=== PATIENT | female | born 1935 | race Caucasian/White ===

== ENCOUNTER 2020-07-17 19:17 | Inpatient (IN) | payer MEDICARE ==
--- NOTE | 2020-07-17 20:24 | CT ---
EXAMINATION TYPE: CT brain wo con DATE OF EXAM: 07/17/2020 COMPARISON: HISTORY: Slurred speech. CT DLP: 1088.4 mGycm Automated exposure control for dose reduction was used. Helical imaging through the brain. FINDINGS: There is no hemorrhage or hydrocephalus. Cortical atrophy is present. Periventricular white matter sh ows patchy low attenuation. Calvarium is intact. Paranasal sinuses and mastoid air cells as visualize d are normal. IMPRESSION: AGE-RELATED CHANGES OF ATROPHY AND PROBABLE CHRONIC SMALL VESSEL ISCHEMIA.
[2020-07-17 20:41] LABS: Basophils # (A) 0.1 k/uL (0-0.2); Basophils % (A) 1 %; Eosinophils # (A) 0.3 k/uL (0-0.7); Eosinophils % (A) 4 %; HCT 36.3 % (34.0-46.0); HGB 12.2 gm/dL (11.4-16.0); Lymphocytes # (A) 1.9 k/uL (1.0-4.8); Lymphocytes % (A) 23 %; MCH 29.7 pg (25.0-35.0); MCHC 33.7 g/dL (31.0-37.0); Mean Platelet Volume 8.1; Monocytes # (A) 0.4 k/uL (0-1.0); Monocytes % (A) 5 %; Neutrophils # (A) 5.7 k/uL (1.3-7.7); Neutrophils % (A) 67 %; Platelet Count 285 k/uL (150-450); RBC 4.13 m/uL (3.80-5.40); RDW 13.7 % (11.5-15.5); WBC 8.5 k/uL (3.8-10.6)
[2020-07-17 21:03] LABS: Partial Thromboplastin Time 22.3 sec (22.0-30.0); Prothrombin Time 10.6 sec (9.0-12.0)
[2020-07-17 21:23] LABS: Albumin 4.4 g/dL (3.5-5.0); Potassium 4.6 mmol/L (3.5-5.1); Total Bilirubin 0.2 mg/dL (0.2-1.3); Total Protein 7.3 g/dL (6.3-8.2)
[2020-07-17] MEDS ORDERED: NALOXONE 0.4 MG/ML 1 ML VIAL IV PRN (22:10)
--- NOTE | 2020-07-17 22:10 | ED ---
General Adult HPI - General Chief complaint: Neuro Symptoms/Deficit Stated complaint: Slurred Speech/Confusion Time Seen by Provider: 07/17/20 19:36 Source: patient Mode of arrival: wheelchair - History of Present Illness Initial comments: 85-year-old female patient presents to the emergency department today for evaluation after having an episode where she is having difficulty speaking. States that around 12:00 this afternoon she started having trouble getting her words out. Her first language is [place] and she had to switch to [place] in order to express herself. Daughter states there were times when she couldn't speak at all during the episode. Denies any difficulty swallowing. Denies numbness, tingling, or weakness to her extremities. Denies any headache, blurred vision, double vision, or change in vision. Daughter states that she has had trouble finding her words and some forgetfulness increased over the last couple of years, but nothing that was this severe or lasted this long. Daughter states symptoms did improve after eating, though she did not check blood sugar before hand. Patient denies any recent rash, fever, chills, cough, shortness of breath, chest pain, abdominal pain, nausea, vomiting, diarrhea, constipation, back pain, hematuria, dysuria, urinary urgency, urinary frequency, or any other complaints. - Related Data Home Medications Medication Instructions Recorded Confirmed Felodipine [Felodipine ER] 10 mg PO DAILY 07/17/20 07/17/20 Levocetirizine Dihydrochloride 5 mg PO DAILY 07/17/20 07/17/20 [Xyzal] Losartan Potassium [Cozaar] 100 mg PO DAILY 07/17/20 07/17/20 metFORMIN HCL 1,000 mg PO BID 07/17/20 07/17/20 Allergies Allergy/AdvReac Type Severity Reaction Status Date / Time codeine Allergy Hallucinati Verified 07/17/20 21:45 ons Review of Systems ROS Statement: Those systems with pertinent positive or pertinent negative responses have been documented in the HPI. ROS Other: All systems not noted in ROS Statement are negative. Past Medical History Past Medical History: Diabetes Mellitus, Hyperlipidemia, Hypertension History of Any Multi-Drug Resistant Organisms: None Reported Past Surgical History: Hysterectomy, Joint Replacement Additional Past Surgical History / Comment(s): back surgery Smoking Status: Never smoker Past Alcohol Use History: None Reported Past Drug Use History: None Reported General Exam General appearance: alert, in no apparent distress, other (This is a well- developed, well-nourished elderly female patient in no acute distress. Vital signs upon presentation temperature 98.0F, pulse 98, respirations 18, blood pressure 191/80, pulse ox 98% on room air.) Eye exam: Present: normal appearance, PERRL, EOMI. Absent: scleral icterus, conjunctival injection, periorbital swelling ENT exam: Present: normal exam, normal oropharynx, mucous membranes moist Respiratory exam: Present: normal lung sounds bilaterally. Absent: respiratory distress, wheezes, rales, rhonchi, stridor Cardiovascular Exam: Present: regular rate, normal rhythm, normal heart sounds. Absent: systolic murmur, diastolic murmur, rubs, gallop, clicks GI/Abdominal exam: Present: soft, normal bowel sounds. Absent: distended, tenderness, guarding, rebound, rigid Neurological exam: Present: alert, oriented X3, CN II-XII intact Expanded Speech: Present: fluid speech Cranial nerves: EOM's Intact: Normal, Tongue Deviation: Normal, Nystagmus: Normal, Facial Sensation: Normal Cerebellar function: Finger to Nose: Normal, Heel to Ferrer: Normal Motor strength exam: RUE: 5, LUE: 5, RLE: 5, LLE: 5 Psychiatric exam: Present: normal affect, normal mood Skin exam: Present: warm, dry, intact, normal color. Absent: rash Course Vital Signs 07/17/20 19:23 Temperature 98.0 F Pulse Rate 98 Respiratory 18 Rate Blood Pressure 191/80 O2 Sat by Pulse 98 Oximetry EKG Findings - EKG Comments: EKG Findings:: EKG obtained at 1936 shows normal sinus rhythm with a ventricular rate of 99, NJ interval 170, QRS duration 122, QT 364, QTC 467. Medical Decision Making - Medical Decision Making 85-year-old female patient presented to the emergency department today for evaluation after having episode of difficulty speaking, daughter and patient states symptoms lasted for a little over 2 hours. Physical examination on arrival is unremarkable. She is neurologically intact. An a to be 0. She did have negative computed tomography scan here. Labs are unremarkable. She will be admitted to the hospital for further evaluation by neurology for probable TIA. Patient and daughter are agreeable. As of my attending Dr. Rose. - Lab Data Result diagrams: 07/17/20 20:11 07/17/20 20:11 Lab Results 07/17/20 07/17/20 07/17/20 Range/Units 20:11 20:11 20:11 WBC 8.5 (3.8-10.6) k/uL RBC 4.13 (3.80-5.40) m/uL Hgb 12.2 (11.4-16.0) gm/dL Hct 36.3 (34.0-46.0) % MCV 88.0 (80.0-100.0) fL MCH 29.7 (25.0-35.0) pg MCHC 33.7 (31.0-37.0) g/dL RDW 13.7 (11.5-15.5) % Plt Count 285 (150-450) k/uL MPV 8.1 Neutrophils % 67 % Lymphocytes % 23 % Monocytes % 5 % Eosinophils % 4 % Basophils % 1 % Neutrophils # 5.7 (1.3-7.7) k/uL Lymphocytes # 1.9 (1.0-4.8) k/uL Monocytes # 0.4 (0-1.0) k/uL Eosinophils # 0.3 (0-0.7) k/uL Basophils # 0.1 (0-0.2) k/uL PT 10.6 (9.0-12.0) sec INR 1.0 (<1.2) APTT 22.3 (22.0-30.0) sec Sodium 139 (137-145) mmol/L Potassium 4.6 (3.5-5.1) mmol/L Chloride 104 (98-107) mmol/L Carbon Dioxide 24 (22-30) mmol/L Anion Gap 11 mmol/L BUN 21 H (7-17) mg/dL Creatinine 0.88 (0.52-1.04) mg/dL Est GFR (CKD-EPI)AfAm 71 (>60 ml/min/1.73 sqM) Est GFR (CKD-EPI)NonAf 61 (>60 ml/min/1.73 sqM) Glucose 227 H (74-99) mg/dL Calcium 10.0 (8.4-10.2) mg/dL Total Bilirubin 0.2 (0.2-1.3) mg/dL AST 24 (14-36) U/L ALT 17 (4-34) U/L Alkaline Phosphatase 137 H (38-126) U/L Troponin I (0.000-0.034) ng/mL Total Protein 7.3 (6.3-8.2) g/dL Albumin 4.4 (3.5-5.0) g/dL 07/17/20 Range/Units 20:11 WBC (3.8-10.6) k/uL RBC (3.80-5.40) m/uL Hgb (11.4-16.0) gm/dL Hct (34.0-46.0) % MCV (80.0-100.0) fL MCH (25.0-35.0) pg MCHC (31.0-37.0) g/dL RDW (11.5-15.5) % Plt Count (150-450) k/uL MPV Neutrophils % % Lymphocytes % % Monocytes % % Eosinophils % % Basophils % % Neutrophils # (1.3-7.7) k/uL Lymphocytes # (1.0-4.8) k/uL Monocytes # (0-1.0) k/uL Eosinophils # (0-0.7) k/uL Basophils # (0-0.2) k/uL PT (9.0-12.0) sec INR (<1.2) APTT (22.0-30.0) sec Sodium (137-145) mmol/L Potassium (3.5-5.1) mmol/L Chloride (98-107) mmol/L Carbon Dioxide (22-30) mmol/L Anion Gap mmol/L BUN (7-17) mg/dL Creatinine (0.52-1.04) mg/dL Est GFR (CKD-EPI)AfAm (>60 ml/min/1.73 sqM) Est GFR (CKD-EPI)NonAf (>60 ml/min/1.73 sqM) Glucose (74-99) mg/dL Calcium (8.4-10.2) mg/dL Total Bilirubin (0.2-1.3) mg/dL AST (14-36) U/L ALT (4-34) U/L Alkaline Phosphatase (38-126) U/L Troponin I <0.012 (0.000-0.034) ng/mL Total Protein (6.3-8.2) g/dL Albumin (3.5-5.0) g/dL - Radiology Data Radiology results: report reviewed, image reviewed CT brain without contrast was obtained. Report was reviewed in its entirety. Impression by Dr. Patel shows age-related changes of atrophy and probable chronic small vessel ischemia. Disposition Clinical Impression: TIA (transient ischemic attack) Disposition: ADMITTED IP TO THIS [facility] Condition: Serious Referrals: Delgado Person DO [Primary Care Provider] - 1-2 days Decision to Admit Reason: Admit from EC Decision Date: 07/17/20 Decision Time: 22:10
[2020-07-17] MEDS ORDERED: ASPIRIN 81 MG PO STA (22:11)
[2020-07-17] MEDS ORDERED: DILTIAZEM DRIP BOLUS FROM BAG 1 MG SOLN IV ONE (22:30)
[2020-07-17] MEDS ORDERED: DILTIAZEM 125 MG in SODIUM CHLORIDE 0.9% 100 ML IV SCH (22:45)
[2020-07-17 23:11] LABS: Appearance,Urine Clear (Clear); Bacteria,Urine Occasional /hpf; Bilirubin,Urine Negative (Negative); Blood,Urine Negative (Negative); Color,Urine Colorless; Glucose,Urine (UA) 4+ (Negative); Ketones,Urine Negative (Negative); Leukocyte Esterase,Urine Large (Negative); Mucus,Urine Rare /hpf; Nitrite,Urine Negative (Negative); PH, Urine 5.5 (5.0-8.0); Protein,Urine Negative (Negative); RBC,Urine 1 /hpf (0-5); Specific Gravity,Urine 1.007 (1.001-1.035); Squamous Epithelial Cell,Urine <1 /hpf (0-4); Urobilinogen,Urine <2.0 mg/dL (<2.0); WBC,Urine 10 /hpf (0-5)
[2020-07-18 02:49] LABS: Glucose,Whole Blood 140 mg/dL (75-99)
[2020-07-18 06:13] LABS: Glucose,Whole Blood 122 mg/dL (75-99)
[2020-07-18] MEDS ORDERED: ASPIRIN 325 MG TAB PO SCH (09:00)
[2020-07-18] MEDS ORDERED: metFORMIN 500 MG TAB PO SCH ×2 (09:00→17:45)
[2020-07-18] MEDS ORDERED: LORATADINE 10 MG TAB PO SCH (09:00)
[2020-07-18] MEDS ORDERED: LOSARTAN 50 MG TAB PO SCH (09:00)
[2020-07-18] MEDS: DILTIAZEM CD 120 MG CAP.ER.24H PO SCH (09:56)
[2020-07-18] MEDS: amLODIPine 10 MG TAB PO SCH (09:56)
--- NOTE | 2020-07-18 11:33 | P.CRDCN ---
History of Present Illness Consult date: 07/18/20 History of present illness: HISTORY OF PRESENT ILLNESS: This is a 85-year-old female with a past medical history significant for hypertension, hyperlipidemia, and diabetes mellitus. Patient follows with Dr. Arevalo. We have been asked to see the patient in consultation for atrial flutter. Patient examined at the bedside. Patients daughter present and providing majority of HPI. Patient's daughter states that yesterday patient began having difficulty with her speech and was unable to get the words out that was she trying to say. She also states her mom does paint by numbers and the patient appeared confused and did not know what to do with the paint by number yesterday. The patient denied having any chest pain or pressure. She denied any shortness of breath. She denied any weakness in any of her extremities. She denied dizziness or lightheadedness. She denied having any palpitations. She does state that she felt her heart pounding yesterday for just a couple of seconds and then it went away. The daughter states the patient is back to her baseline this morning. Initial EKG in the emergency room revealed sinus mechanism. She then became tachycardic. Repeat EKG reveals possible atypical flutter with RVR versus SVT. Patient was given IV cardizem and her heart rate has since been controlled. She is maintaining sinus mechanism this morning. CT brain: Age related changes of atrophy and probable chronic small vessel ische kyler Laboratory data: WBC 8.5. Hemoglobin 12.2. Platelet count 285. Sodium 139. Potassium 4.6. BUN 21. Creatinine 0.88. Troponin negative 1. Current home cardiac medications include Felodipine 10mg daily and Cozaar 100 mg daily REVIEW OF SYSTEMS: At the time of my exam: CONSTITUTIONAL: Denies fever or chills. HEENT: Denies blurred vision, vision changes, or eye pain. Denies hemoptysis CARDIOVASCULAR: Denies chest pain. Denies orthopnea. Denies PND. Denies palpitations RESPIRATORY: Denies shortness of breath. GASTROINTESTINAL: Denies abdominal pain. Denies nausea or vomiting. HEMATOLOGIC: Denies bleeding disorders. GENITOURINARY: Denies any blood in urine. SKIN: Denies pruitis. Denies rash. PHYSICAL EXAM: VITAL SIGNS: Reviewed. GENERAL: Well-developed in no acute distress. HEENT: Head is normocephalic. Pupils are equal, round. Sclerae anicteric. Mucous membranes of the mouth are moist. Neck supple. No JVD or thyromegaly. Left carotid bruit auscultated. LUNGS: Respirations even and unlabored. Lungs essentially clear to auscultation bilaterally. HEART: Regular rate and rhythm. S1 and S2 heard. Soft systolic murmur noted. ABDOMEN: Soft. Nondistended. Nontender. EXTREMITIES: Normal range of motion. No clubbing or cyanosis. Peripheral pulses intact. No lower extremity edema NEUROLOGIC: Awake and alert. Oriented x 3. ASSESSMENT: Expressive aphasia, suspected TIA Possible atypical flutter with RVR versus SVT Hypertension Hyperlipidemia Diabetes mellitus PLAN: Patients symptoms suggestive of TIA. EKG is difficult to say with certainty that it is atrial flutter but would correlate with patients symptoms. Recommend anticoagulation with Eliquis due to chads vasc score of 5. Spoke with Dr. Doss regarding our recommendations and will notify cardiology team if he is okay with anticoagulation. Continue full dose aspirin at this time until evaluated by neurology. Continue telemetry monitoring Resume home cardiac medications Check TSH Obtain 2-D echo to assess cardiac structure and function Begin atorvastatin 40 mg daily. Obtain lipid panel Obtain carotid Doppler Further recommendations pending patient course Nurse practitioner note has been reviewed by physician. Signing provider agrees with the documented findings, assessment, and plan of care. Past Medical History Past Medical History: Diabetes Mellitus, Hyperlipidemia, Hypertension History of Any Multi-Drug Resistant Organisms: None Reported Past Surgical History: Hysterectomy, Joint Replacement Additional Past Surgical History / Comment(s): back surgery Smoking Status: Never smoker Past Alcohol Use History: None Reported Past Drug Use History: None Reported Medications and Allergies Home Medications Medication Instructions Recorded Confirmed Type Felodipine [Felodipine ER] 10 mg PO DAILY 07/17/20 07/17/20 History Levocetirizine Dihydrochloride 5 mg PO DAILY 07/17/20 07/17/20 History [Xyzal] Losartan Potassium [Cozaar] 100 mg PO DAILY 07/17/20 07/17/20 History metFORMIN HCL 1,000 mg PO BID 07/17/20 07/17/20 History Allergies Allergy/AdvReac Type Severity Reaction Status Date / Time codeine Allergy Hallucinati Verified 07/17/20 21:45 ons Physical Exam Vitals: Vital Signs Temp Pulse Pulse Resp BP BP Pulse Ox 07/18/20 08:58 98.4 F 74 18 187/77 96 07/18/20 03:34 70 18 165/84 97 07/18/20 02:10 98.3 F 79 18 144/92 97 07/18/20 02:00 75 80 18 144/81 96 07/18/20 01:59 98.2 F 80 18 181/76 98 07/18/20 00:52 156 H 20 134/82 96 07/17/20 23:30 152 H 16 150/94 97 07/17/20 22:15 155 H 07/17/20 22:00 148 H 18 140/80 98 07/17/20 19:23 98.0 F 98 18 191/80 98 Intake and Output 07/17/20 07/18/20 07/18/20 22:59 06:59 14:59 Intake Total 5.25 240 Output Total 2 Balance 3.25 240 Intake: Intake, IV Titration 5.25 Amount Diltiazem 125 mg In 5.25 Sodium Chloride 0.9% 100 ml @ 5 MG/HR 5 mls/hr IV .Q24H [facility] Rx#:[id number] Oral 240 Output: Urine 2 Other: Voiding Method Toilet Weight 72.575 kg 69.9 kg Results 07/17/20 20:11 07/17/20 20:11 Cardiac Enzymes 07/17/20 07/17/20 Range/Units 20:11 20:11 AST 24 (14-36) U/L Troponin I <0.012 (0.000-0.034) ng/mL Coagulation 07/17/20 Range/Units 20:11 PT 10.6 (9.0-12.0) sec APTT 22.3 (22.0-30.0) sec CBC 07/17/20 Range/Units 20:11 WBC 8.5 (3.8-10.6) k/uL RBC 4.13 (3.80-5.40) m/uL Hgb 12.2 (11.4-16.0) gm/dL Hct 36.3 (34.0-46.0) % Plt Count 285 (150-450) k/uL Comprehensive Metabolic Panel 07/17/20 Range/Units 20:11 Sodium 139 (137-145) mmol/L Potassium 4.6 (3.5-5.1) mmol/L Chloride 104 (98-107) mmol/L Carbon Dioxide 24 (22-30) mmol/L BUN 21 H (7-17) mg/dL Creatinine 0.88 (0.52-1.04) mg/dL Glucose 227 H (74-99) mg/dL Calcium 10.0 (8.4-10.2) mg/dL AST 24 (14-36) U/L ALT 17 (4-34) U/L Alkaline Phosphatase 137 H (38-126) U/L Total Protein 7.3 (6.3-8.2) g/dL Albumin 4.4 (3.5-5.0) g/dL Current Medications Generic Name Dose Route Start Last Admin Trade Name Freq PRN Reason Stop Dose Admin Amlodipine Besylate 10 mg 07/18/20 09:00 07/18/20 09:56 Amlodipine 10 Mg Tab PO 10 mg DAILY BRYANT Administration Aspirin 325 mg 07/18/20 09:00 07/18/20 09:56 Aspirin 325 Mg Tab PO 325 mg DAILY BRYANT Administration Atorvastatin Calcium 40 mg 07/18/20 21:00 Atorvastatin 40 Mg Tab PO [facility] Diltiazem HCl 120 mg 07/18/20 09:00 07/18/20 09:56 Diltiazem Cd 120 Mg Cap.Er.24h PO 120 mg DAILY BRYANT Administration Loratadine 10 mg 07/18/20 09:00 07/18/20 09:56 Loratadine 10 Mg Tab PO Not Given DAILY [facility] Losartan Potassium 100 mg 07/18/20 09:00 07/18/20 09:56 Losartan 50 Mg Tab PO 100 mg DAILY BRYANT Administration Metformin HCl 1,000 mg 07/18/20 09:00 07/18/20 09:27 Metformin 500 Mg Tab PO Not Given BID BRYANT Naloxone HCl 0.2 mg 07/17/20 22:10 Naloxone 0.4 Mg/Ml 1 Ml Vial IV Q2M PRN Opioid Reversal Intake and Output 07/17/20 07/18/20 07/18/20 22:59 06:59 14:59 Intake Total 5.25 240 Output Total 2 Balance 3.25 240 Intake: Intake, IV Titration 5.25 Amount Diltiazem 125 mg In 5.25 Sodium Chloride 0.9% 100 ml @ 5 MG/HR 5 mls/hr IV .Q24H [facility] Rx#:[id number] Oral 240 Output: Urine 2 Other: Voiding Method Toilet Weight 72.575 kg 69.9 kg 07/17/20 20:11 07/17/20 20:11
[2020-07-18 12:05] LABS: Glucose,Whole Blood 156 mg/dL (75-99)
--- NOTE | 2020-07-18 12:15 | ECHOF ---
Referral Reason:Lv function MEASUREMENTS -------- HEIGHT: 15.2 cm WEIGHT: 69.9 kg BP: 165/84 IVSd: 1.4 cm (0.6 - 1.1) LVIDd: 3.8 cm (3.9 - 5.3) LVPWd: 1.6 cm (0.6 - 1.1) EDV(Teich): 62 ml IVSs: 1.7 cm LVIDs: 2.7 cm LVPWs: 1.8 cm %IVS Thck: 21 % ESV(Teich): 26 ml EF(Teich): 58 % %FS: 30 % SV(Teich): 36 ml LA Diam: 4.2 cm (2.7 - 3.8) RVIDd: 2.3 cm (< 3.3) LALs A4C: 5.2 cm LAAs A4C: 19.2 cm LAESV A-L A4C: 60 ml LAESV MOD A4C: 57 ml LALs A2C: 4.9 cm LAAs A2C: 15.3 cm LAESV A-L A2C: 40 ml LAESV MOD A2C: 38 ml LAESV(A-L): 51 ml LAESV Index (A-L): 164.05 ml/m Ao Diam: 3.1 cm (2.0 - 3.7) AV Cusp: 2.2 cm (1.5 - 2.6) EPSS: 0.4 cm MV E Luis Enrique: 0.63 m/s MV DecT: 185 ms MV Dec [place]: 3.4 m/s MV A Luis Enrique: 0.93 m/s MV E/A Ratio: 0.68 MV PHT: 54 ms LVOT Vmax: 0.84 m/s LVOT maxP.84 mmHg AV Vmax: 1.16 m/s AV maxP.39 mmHg TR Vmax: 1.51 m/s TR maxP.14 mmHg RAP: 5.00 mmHg RVSP: 14.14 mmHg MV EF SLOPE: 84.89 mm/s (70 - 150) MV EXCURSION: 17.80 mm (> 18.000) FINDINGS -------- This was a technically difficult study with suboptimal views. The left ventricular size is normal. There is moderate concentric left ventricular hypertrophy. O verall left ventricular systolic function is low-normal with, an EF between 50 - 55 %. The right ventricle is normal in size. LA is severely dilated >40 ml/m2 The right atrial size is normal. 5.0mg of Lumason was utilized for enhancement of images Interatrial and interventricular septum intact. The aortic valve is trileaflet and appears structurally normal. There is mild aortic valve sclerosi s. There is no evidence of aortic regurgitation. There is no evidence of aortic stenosis. Mild mitral annular calcification present. Mild mitral regurgitation is present. Mild tricuspid regurgitation present. There is no evidence of pulmonary hypertension. The right v entricular systolic pressure, as measured by Doppler, is 14.14mmHg. There is no pulmonic regurgitation present. The aortic root size is normal. IVC Not well visulized. There is no pericardial effusion. CONCLUSIONS -------- 1. The left ventricular size is normal. 2. There is moderate concentric left ventricular hypertrophy. 3. Overall left ventricular systolic function is low-normal with, an EF between 50 - 55 %. 4. LA is severely dilated >40 ml/m2 5. There is mild aortic valve sclerosis. 6. Mild mitral annular calcification present. 7. Mild mitral regurgitation is present. 8. Mild tricuspid regurgitation present. COMPLIANCE CONSULTANT: Taty Finley RDCS
[2020-07-18] MEDS: INSULIN ASPART (NovoLOG) 100 UNIT/ML VIAL SQ SCH ×3 (12:24→20:40)
--- NOTE | 2020-07-18 12:50 | US ---
EXAMINATION TYPE: US carotid duplex BILAT DATE OF EXAM: 07/18/2020 COMPARISON: NONE CLINICAL HISTORY: TIA. EXAM MEASUREMENTS: RIGHT: Peak Systolic Velocity (PSV) cm/sec ----- Right CCA: 54.8 ----- Right ICA: 185.6 ----- Right ECA: 149.2 ICA/CCA ratio: 3.4 RIGHT: End Diastole cm/sec ----- Right CCA: 10.9 ----- Right ICA: 40.7 ----- Right ECA: 7.4 LEFT: Peak Systolic Velocity (PSV) cm/sec ----- Left CCA: 61.1 ----- Left ICA: 76.2 ----- Left ECA: 55.9 ICA/CCA ratio: 1.2 LEFT: End Diastole cm/sec ----- Left CCA: 13.5 ----- Left ICA: 18.1 ----- Left ECA: 5.4 VERTEBRALS (direction of flow): Right Vertebral: Antegrade Left Vertebral: Antegrade Rhythm: Normal Grayscale, color Doppler, spectral Doppler imaging performed of the carotid arteries. Waveform analys is shows hemodynamic significant stenosis of the proximal internal carotid artery in the right. There is loss of the systolic window, spectral broadening and elevated peak systolic velocity in the proxi mal internal carotid artery on the right. Moderate/severe amount of plaque visualized bilaterally. 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 1. Normal (no stenosis)=ICA PSV < 125 cm/s: ratio < 2.0: ICA EDV<40 cm/s. 2. Less than 50% stenosis=ICA PSV < 125 cm/s: ratio < 2.0: ICA EDV<40 cm/s. 3. 50 to 69% stenosis=ICA PSV of 125 to 230 cm/s: ration 2.0 ? 4.0: ICA EDV 40-100 cm/s. 4. Greater than 70% stenosis to near occlusion= ICA PSV > 230 cm/s: ratio > 4.0: ICA EDV > 100 cm/s. 5. Near occlusion= ICA PSV velocities may be low or undetectable: variable ratio and ICA EDV. 6. Total occlusion=unable to detect flow.
--- NOTE | 2020-07-18 15:17 | P.CNNES ---
History of Present Illness Consult date: 07/18/20 Requesting physician: Riya Rico Reason for Consult: TIA History of Present Illness: Patient is a 85-year-old female came to the hospital yesterday at 7:17 PM, after she had an episode of difficulty speaking. Patient's daughter was also present, who provided with history. Patient usually wakes up at 8:52 AM and takes her breakfast and then her medication. Yesterday patient did not wake up until 11 AM. Apparently she tried to do puzzles, and paint, which she usually does in the mornings. She did not know what to do. She then took her lunch at noon including a hamburger, with sauteed mushrooms and salad. Then she took her medication including metformin. At around 2 PM patient came in to talk to her daughter pointing to her throat, saying "I don't understand". She had difficulty with articulation, did not know what was happening. Patient usually speaks to her daughter in Kinyarwanda language, but she was talking in a Algerian, which was unusual. She could not find words. Patient's daughter took her to urgent care. She was recommended to go to the ER. On the way to the ER, patient's daughter took her to [employer] drive-through, and about her some food and she ate at all, appears as if she was very hungry. Unfortunately patient's daughter did not check her blood sugar at home, for the reasons mentioned below. There was no facial droop, problem with the vision, focal weakness, numbness or balance issues reported. In the urgent care, patient's blood sugar was 360. EKG was done. Patient was recommended to go to the ER. Vital signs on arrival blood pressure 191/80, pulse rate 98, temperature 98.0. Her blood pressure did stabilize after she arrived, but now has gone up again 187/77. CT scan of head showed age-related changes of atrophy and probable chronic small vessel ischemia. EKG shows SVT, left axis deviation. Repeat EKG showed normal sinus rhythm. Patient's blood test shows normal CBC, PT/PTT, Chem-20 is normal. Troponin negative. UA shows large amount of leukocyte Estrace, 10 WBC and occasional bacteria. Dow virus PCR negative. Patient has diabetes for over 10 years, hypertension and hyperlipidemia. Patient does not like to check her home blood sugar, as she flatly declines, and becomes "mean and angry", as per daughter, therefore never checks her blood sugars at home. She has never smoked, drinks alcohol occasionally. Apparently patient had an episode of "irregular heart rhythm" after some surgical procedure in 2013. As the "irregular heart rhythm" did not stay long, she was not placed on anticoagulants at that time. Patient at home takes metformin 1000 mg twice a day, losartan 100 mg and felodipine. Review of Systems As mentioned above in HPI. All other review of systems unremarkable. Denies any chest pain shortness of breath wheezing or cough. Denies any diplopia, loss of vision, chest pain, abdominal pain, nausea vomiting diarrhea. No fever or chills. No rash. No weight loss. Past Medical History Past Medical History: Diabetes Mellitus, Hyperlipidemia, Hypertension History of Any Multi-Drug Resistant Organisms: None Reported Past Surgical History: Hysterectomy, Joint Replacement Additional Past Surgical History / Comment(s): back surgery Smoking Status: Never smoker Past Alcohol Use History: None Reported Past Drug Use History: None Reported Medications and Allergies Home Medications Medication Instructions Recorded Confirmed Type Felodipine [Felodipine ER] 10 mg PO DAILY 07/17/20 07/17/20 History Levocetirizine Dihydrochloride 5 mg PO DAILY 07/17/20 07/17/20 History [Xyzal] Losartan Potassium [Cozaar] 100 mg PO DAILY 07/17/20 07/17/20 History metFORMIN HCL 1,000 mg PO BID 07/17/20 07/17/20 History Apixaban [Eliquis] 5 mg PO BID #60 tab 07/18/20 Rx Allergies Allergy/AdvReac Type Severity Reaction Status Date / Time codeine Allergy Hallucinati Verified 07/17/20 21:45 ons Physical Examination - Vital Signs Vital Signs: Vital Signs Temp Pulse Pulse Resp BP BP Pulse Ox 07/18/20 08:58 98.4 F 74 18 187/77 96 07/18/20 03:34 70 18 165/84 97 07/18/20 02:10 98.3 F 79 18 144/92 97 07/18/20 02:00 75 80 18 144/81 96 07/18/20 01:59 98.2 F 80 18 181/76 98 07/18/20 00:52 156 H 20 134/82 96 07/17/20 23:30 152 H 16 150/94 97 07/17/20 22:15 155 H 07/17/20 22:00 148 H 18 140/80 98 07/17/20 19:23 98.0 F 98 18 191/80 98 Intake and Output 07/17/20 07/18/20 07/18/20 22:59 06:59 14:59 Intake Total 5.25 240 Output Total 2 Balance 3.25 240 Intake: Intake, IV Titration 5.25 Amount Diltiazem 125 mg In 5.25 Sodium Chloride 0.9% 100 ml @ 5 MG/HR 5 mls/hr IV .Q24H [facility] Rx#:[id number] Oral 240 Output: Urine 2 Other: Voiding Method Toilet Weight 72.575 kg 69.9 kg Patient is an elderly female, in no acute distress. Patient is alert awake oriented to time place and person. Patient knows it is July and the year is 2020. Patient does not know what town is it although she knows that she lives in [facility]. Patient states the state is "[place]". Multiple times it was asked what state and she insisted on state of "[place]". Speech and language functions are normal. Patient can name and repeat very well. She follow, arms and comprehension is normal. Attention, con centration and fund of knowledge is adequate for her age. On cranial examination, pupils are equal, round and reacting to light, visual casas are full on confrontation with no neglect on double simultaneous stimulation, extraocular muscles are intact with no nystagmus. Face is symmetric, tongue protrudes to the midline. Palatal elevation and sensation normal, hearing and shoulder shrug normal, facial sensation normal. Shoulder shrug normal. On muscle strength testing, there is no pronator drift and the strength is normal in arms and legs distally and proximally. Deep tendon reflexes are 1+ to 2, symmetric all over and plantars downgoing Sensory to touch is equal with no neglect. Cerebellar function showed no ataxia for [id number] testing. No dysdiadochokinesia. Tone and bulk of muscles normal. Gait normal. On general examination, there is no carotid bruit or murmur, S1-S2 audible. Abdomen is soft nontender. Chest is clear. Peripheral pulses are present. No edema. Results - Laboratory Findings CBC and BMP: 07/17/20 20:11 07/17/20 20:11 Abnormal Lab Findings: Abnormal Labs 07/17/20 07/17/20 07/18/20 20:11 22:31 02:46 BUN 21 H Glucose 227 H POC Glucose (mg/dL) 140 H Alkaline Phosphatase 137 H Urine Glucose (UA) 4+ H Ur Leukocyte Esterase Large H Urine WBC 10 H Urine Bacteria Occasional H Urine Mucus Rare H 07/18/20 06:12 BUN Glucose POC Glucose (mg/dL) 122 H Alkaline Phosphatase Urine Glucose (UA) Ur Leukocyte Esterase Urine WBC Urine Bacteria Urine Mucus Assessment and Plan Assessment: * Probable TIA manifesting with expressive aphasia. Her symptoms have now completely resolved. Exam nonfocal at this time. Differential also includes hypoglycemia, as blood sugar was not checked. However patient has eaten lunch (hamburger) prior to this event, therefore probably would not be hypoglycemic. Her blood sugar at the urgent care was 360. * Possible atypical flutter with RVR versus SVT. * History of "irregular heart rhythm" post surgery in 2013, that did not recur subsequently. Patient not on any anticoagulation previously. * Diabetes * Hypertension * Hyperlipidemia Plan: * Patient has a probable TIA manifesting with expressive aphasia, that now has resolved. Her examination is normal. * There is possibility of atrial flutter/fibrillation per cardiology. Patient will be started on anticoagulation with Apixaban 5 mg twice a day. * 2-D echo revealed normal left-ventricular size. Moderate concentric LVH. EF is 50-55%. Left atrium is severely dilated. Mild aortic valve sclerosis. Mild mitral annular calcification. * Carotid Doppler revealed hemodynamic significant stenosis of the proximal ICA on the right corresponding to approximately 50-69% diameter reduction by Doppler. Antegrade flow in both vertebral arteries. We will check CTA of head and neck. * Lipid panel pending. We will check hemoglobin A1c. * Telemetry on the floor showing only sinus rhythm. * Dr. Syed Olmedo to resume neurology service from the morning.
[2020-07-18] MEDS: APIXABAN 5 MG TAB PO SCH ×2 (15:38→20:40)
--- NOTE | 2020-07-18 16:33 | CT ---
EXAMINATION TYPE: CT angio head neck DATE OF EXAM: 07/18/2020 HISTORY: TIA, right ICA stenosis COMPARISON: Carotid ultrasound earlier today CT DLP: 411.6 mGycm. Automated Exposure Control for Dose Reduction was Utilized. TECHNIQUE: CTA scan of the head and neck are performed with IV Contrast, patient injected with 65 mL of Isovue 370, axial images are obtained, coronal and sagittal reformatted images are reviewed. Thre e-D reconstructed images are created on an independent workstation and reviewed. FINDINGS: Carotid/Vascular Structures: Overlying type arch which is normal variant. Mild to moderate mixed plaq ue in the arch extending into descending thoracic aorta. No significant stenosis at aortic arch level . Normal origin right common carotid artery from right brachiocephalic artery with tortuous course. T ortuous course to the bilateral common carotid arteries without significant plaque or stenosis. There is moderate to severe mixed plaque in the right carotid bulb extending into proximal internal caroti d artery causing significant stenosis. Lumen diameter narrows to 1.7 mm series 14 image 13 and recons titutes to 5.9 mm superior to this. No significant stenosis in the external carotid artery. Moderate to severe calcified plaque left carotid bulb extends into proximal internal carotid artery without gr eater than 50% stenosis. Patent external carotid arteries bilaterally without significant stenosis. Larger or dominant right vertebral artery. Vertebral arteries patent to basilar junction. Hypoplastic bilateral posterior communicating arteries. No significant focal stenosis or aneurysm in the posteri or circulation. Moderate calcified plaque distal internal carotid arteries bilaterally. Patent anterior communicatin g artery. No significant focal stenosis or aneurysmal change in the anterior circulation. Other: Incidental 1.4 cm right thyroid nodule axial image 36 and suspect smaller subcentimeter thyro id nodules. Follow-up thyroid ultrasound advised to further evaluate if this is not known finding. Mild to moderate spurring and disc space narrowing C5-C6 and C6-C7 levels in the cervical spine. IMPRESSION: 1. Confirmation of significant stenosis origin of right internal carotid artery. The degree of stenos is near 70% using NASCET criteria. Findings correlate with recent carotid ultrasound. 2. No significant stenosis or aneurysm at the level of the [place].
[2020-07-18 16:56] LABS: Glucose,Whole Blood 151 mg/dL (75-99)
--- NOTE | 2020-07-18 17:44 | P.HPIM ---
History of Present Illness H&P Date: 07/18/20 Chief Complaint: Altered speech History of presenting complaint: This is a very pleasant 85-year-old patient with a Peruvian accent. Patient's daughter the bedside. Chronic stable medical conditions include diabetes, hypertension, hyperlipidemia. Patient lives alone but his daughter lives close by. And drops in all the time. Yesterday afternoon patient was doing apostles and she suddenly noticed that she was feeling confused. Went to her daughter. Also found difficulty finding words. This lasted for a good few hours. No change in vision or headache no dizziness no focal weakness. Finally decided to come down to the ER. Patient's found to be in rapid heart rate in the ER. Patient in 2013 has to was told has had irregular heartbeat but because it was short-lived. She was not given any anticoagulation. Patient is put on a Cardizem drip. Patient did revert to control rhythm only this morning. This morning patient feels back to baseline. Patient otherwise is very active. Review of systems: GEN.: None EYES: None HEENT: None NECK: None RESPIRATORY: None CARDIOVASCULAR: None GASTROINTESTINAL: None GENITOURINARY: None MUSCULOSKELETAL: [Some joint pains LYMPHATICS: None HEMATOLOGICAL: None PSYCHIATRY: None NEUROLOGICAL: As above Past medical history to include: Diabetes mellitus, hypertension, hyperlipidemia, episode of irregular heartbeat smxb-[id number]-uxec-limiting Social history: Lives alone but daughter lives very close by and often is over. Denies any smoking or alcohol. Family history: Reviewed, noncontributory to presentation Physical examination: VITAL SIGNS: 98, 148, 18, 140/80, 98% room air upon presentation GENERAL: BMI 24.9, reclining in bed, comfortable. EYES: Pupils equal. Conjunctiva normal. HEENT: External appearance of nose and ears normal, oral cavity grossly normal. NECK: JVD not raised; masses not palpable. HEART: First and second heart sounds are normal; no edema. LUNGS: Respiratory rate normal; clear to auscultation. ABDOMEN: Soft, nontender, liver spleen not palpable, no masses palpable. PSYCH: Alert and oriented x3; mood and affect normal. 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 LYMPHATICS: No lymph nodes palpable in the axilla and neck INVESTIGATIONS, reviewed in the clinical context: WBC 8.5 hemoglobin 12.2 platelets 285 potassium 4.6 creatinine 0.88 Blood glucose 227 Troponin I less than 0.012 TSH 1.5 UA positive for leukoesterase, bacteria, glucose 4+ Coronavirus [PCR]: Not detected EKG tracing personally reviewed by me-SVT, flutter cannot be ruled out Computed tomography scan of the brain: Age related changes 2-D echocardiogram moderate concentric LVH, EF 50-55% CT angiography: Near 70% stenosis of the right internal carotid artery Assessment and plan: -Acute dysphasia with symptoms lasting for less than 24 hours, with complete resolution. Patient has underlying history of atrial fibrillation and possibly had atrial flutter on presentation. Most likely this is an embolic event. Initial computed tomography scan negative -Paroxysmal atrial flutter, now back in sinus rhythm, initially rate uncontrolled Status post IV Cardizem drip. Now on Cardizem CD. Started on eliquis -Hyperlipidemia Placed on Lipitor -Essential hypertension, with urgency Now on Cardizem CD. Cozaar -Diabetes mellitus type 2, on oral hypoglycemic Resume metformin. Follow Accu-Cheks Care was discussed with patient's daughter and patient the bedside. Patient be started on eliquis. They're concerned about easy bruising. Pros and cons were discussed. They agreed to proceed with eliquis. We will order MRI of the brain. Patient on telemetry. Past Medical History Past Medical History: Diabetes Mellitus, Hyperlipidemia, Hypertension History of Any Multi-Drug Resistant Organisms: None Reported Past Surgical History: Hysterectomy, Joint Replacement Additional Past Surgical History / Comment(s): back surgery Smoking Status: Never smoker Past Alcohol Use History: None Reported Past Drug Use History: None Reported Medications and Allergies Home Medications Medication Instructions Recorded Confirmed Type Felodipine [Felodipine ER] 10 mg PO DAILY 07/17/20 07/17/20 History Levocetirizine Dihydrochloride 5 mg PO DAILY 07/17/20 07/17/20 History [Xyzal] Losartan Potassium [Cozaar] 100 mg PO DAILY 07/17/20 07/17/20 History metFORMIN HCL 1,000 mg PO BID 07/17/20 07/17/20 History Apixaban [Eliquis] 5 mg PO BID #60 tab 07/18/20 Rx Allergies Allergy/AdvReac Type Severity Reaction Status Date / Time codeine Allergy Hallucinati Verified 07/17/20 21:45 ons Physical Exam Vitals: Vital Signs Temp Pulse Pulse Resp BP BP Pulse Ox 07/18/20 08:58 98.4 F 74 18 187/77 96 07/18/20 03:34 70 18 165/84 97 07/18/20 02:10 98.3 F 79 18 144/92 97 07/18/20 02:00 75 80 18 144/81 96 07/18/20 01:59 98.2 F 80 18 181/76 98 07/18/20 00:52 156 H 20 134/82 96 07/17/20 23:30 152 H 16 150/94 97 07/17/20 22:15 155 H 07/17/20 22:00 148 H 18 140/80 98 07/17/20 19:23 98.0 F 98 18 191/80 98 Intake and Output 07/17/20 07/18/20 07/18/20 22:59 06:59 14:59 Intake Total 5.25 240 Output Total 2 Balance 3.25 240 Intake: Intake, IV Titration 5.25 Amount Diltiazem 125 mg In 5.25 Sodium Chloride 0.9% 100 ml @ 5 MG/HR 5 mls/hr IV .Q24H [facility] Rx#:[id number] Oral 240 Output: Urine 2 Other: Voiding Method Toilet Weight 72.575 kg 69.9 kg Results CBC & Chem 7: 07/17/20 20:11 07/17/20 20:11 Labs: Abnormal Lab Results - Last 24 Hours (Table) 07/17/20 07/17/20 07/18/20 Range/Units 20:11 22:31 02:46 BUN 21 H (7-17) mg/dL Glucose 227 H (74-99) mg/dL POC Glucose (mg/dL) 140 H (75-99) mg/dL Alkaline Phosphatase 137 H (38-126) U/L Urine Glucose (UA) 4+ H (Negative) Ur Leukocyte Esterase Large H (Negative) Urine WBC 10 H (0-5) /hpf Urine Bacteria Occasional H (None) /hpf Urine Mucus Rare H (None) /hpf 07/18/20 Range/Units 06:12 BUN (7-17) mg/dL Glucose (74-99) mg/dL POC Glucose (mg/dL) 122 H (75-99) mg/dL Alkaline Phosphatase (38-126) U/L Urine Glucose (UA) (Negative) Ur Leukocyte Esterase (Negative) Urine WBC (0-5) /hpf Urine Bacteria (None) /hpf Urine Mucus (None) /hpf Thrombosis Risk Factor Assmnt - Choose All That Apply Each Risk Factor Represents 3 Points: Age 75 years or older Other congenital or acquired thrombophilia - If yes, enter type in comment: No Thrombosis Risk Factor Assessment Total Risk Factor Score: 3 Thrombosis Risk Factor Assessment Level: Moderate Risk
[2020-07-18 20:03] LABS: Glucose,Whole Blood 193 mg/dL (75-99)
[2020-07-18] MEDS ORDERED: ATORVASTATIN 40 MG TAB PO SCH (21:00)
[2020-07-19 06:09] LABS: Glucose,Whole Blood 151 mg/dL (75-99)
[2020-07-19] MEDS: INSULIN ASPART (NovoLOG) 100 UNIT/ML VIAL SQ SCH ×2 (07:03→12:28)
[2020-07-19] MEDS: DILTIAZEM CD 120 MG CAP.ER.24H PO SCH (08:16)
[2020-07-19] MEDS: amLODIPine 10 MG TAB PO SCH (08:16)
[2020-07-19] MEDS: APIXABAN 5 MG TAB PO SCH (08:16)
[2020-07-19 08:19] VITALS: PULSE 68; RESP 16; TEMP 98.9
--- NOTE | 2020-07-19 11:24 | P.PN ---
Subjective Progress Note Date: 07/19/20 I am seeing the patient for the first time appears please defer to Dr. Lyons's note for further detailed neurological history and his assessment and plan. Per the patient's daughter who is at bedside, she feels her mom's speech is back to baseline and neurologically back to baseline. It seems the MRI Brain is ordered by the primary team but patient is claustrophobic and per daughter she can get open MRI as outpatient. Patient had CT angiography of the head and neck and it's reported as confirmation of significant stenosis origin of the right internal carotid artery. The degree of stenosis in the near 70% using NASA criteria. Finding correlates with a recent carotid ultrasound. No significant stenosis or aneurysm at the level [place]. Dr. Kirk is consulted by primary team for carotid stenosis and per daughter were notified no intervention. Objective - Vital Signs Vital signs: Vital Signs Temp 98.9 F 07/19/20 08:00 Pulse 68 07/19/20 08:00 Resp 16 07/19/20 08:00 BP 138/64 07/19/20 08:00 Pulse Ox 99 07/19/20 08:00 Intake & Output 07/18/20 07/19/20 07/19/20 18:59 06:59 18:59 Intake Total 480 120 Balance 480 120 Weight 69.4 kg Intake: Oral 480 120 Other: Voiding Method Toilet Toilet Toilet Diaper Diaper Diaper Incontinent Incontinent Incontinent # Voids 2 1 - Exam GENERAL: The patient is lying in bed and is not in acute distress.. NEUROLOGICAL: Higher mental function: The patient is awake, alert, oriented to self, place and time. Patient is following commands. No aphasia and no neglect. She is repeating phrases but had to break up the phrases into pieces (per daughter her speech is back to baseline and speaking fluently in Persian and speaking baseline in brit[place] islander). Cranial nerves: The pupils are round, equal and reactive to light and accommodation. Visual casas are full to confrontation throughout. Extraocular movement is intact no nystagmus is noted. Facial sensation is normal to touch throughout. The facial strength is normal throughout. Tongue is midline and moved [id number] without any difficulty. No dysarthria is noted. Shoulder shrug is normal bilaterally. Motor: The strength is 5 over 5 throughout. Normal tone and bulk. Sensation: Sensation is normal to touch throughout. Plantars are downgoing bilaterally. - Labs CBC & Chem 7: 07/17/20 20:11 07/17/20 20:11 Labs: Abnormal Lab Results - Last 24 Hours (Table) 07/18/20 07/18/20 07/18/20 Range/Units 11:59 16:55 20:01 POC Glucose (mg/dL) 156 H 151 H 193 H (75-99) mg/dL 07/19/20 Range/Units 06:08 POC Glucose (mg/dL) 151 H (75-99) mg/dL Assessment and Plan Assessment: * Probable TIA manifesting with expressive aphasia. Her symptoms have now compl etely resolved. Exam nonfocal at this time. Differential also includes hypoglycemia, as blood sugar was not checked. However patient has eaten lunch (hamburger) prior to this event, therefore probably would not be hypoglycemic. Her blood sugar at the urgent care was 360. * Asymptomatic Significant right internal carotid artery stenosis (Per CTA 70%)--I expected Left ICA stenosis to be significant because of likely left hemisphere dominant likely controlling language. * Possible atypical flutter with RVR versus SVT. * History of "irregular heart rhythm" post surgery in 2013, that did not recur subsequently. Patient not on any anticoagulation previously. * Diabetes * Hypertension * Hyperlipidemia Plan: * Patient has a probable TIA manifesting with expressive aphasia, that now has resolved. Her examination is normal. * 2-D echo revealed normal left-ventricular size. Moderate concentric LVH. EF is 50-55%. Left atrium is severely dilated. Mild aortic valve sclerosis. Mild mitral annular calcification. * Carotid Doppler revealed hemodynamic significant stenosis of the proximal ICA on the right corresponding to approximately 50-69% diameter reduction by Doppl er. Antegrade flow in both vertebral arteries. * CT angiography of the head and neck and it's reported as confirmation of significant stenosis origin of the right internal carotid artery. The degree of stenosis in the near 70% using NASA criteria. Finding correlates with a recent carotid ultrasound. No significant stenosis or aneurysm at the level [place]. * There is possibility of atrial flutter/fibrillation per cardiology. Patient on anticoagulation with Apixaban 5 mg twice a day. Added Aspirin 81mg daily in addition to the Eliquis because of the carotid stenosis because the mechanism or different (this was notified to patient and her daughter and they are in agreement of addition of medication). * I increase Lipitor from 40mg to 80mg qhs because of significant carotid stenosis. * Primary team consulted Dr. Logan Kirk for carotid stenosis and no intervention. * Lipid panel, hemoglobin A1c and TSH are pending. * MRI Brain was ordered by primary team but patient is claustrophobic and will get it as outpatient (as open MRI). * Upon discharge the patient needs to follow-up with a neurologist within 1-2 weeks. Also she was notified to follow-up with Dr. Kirk and Cardiology team as outpatient. * Will defer the rest of medical management to the primary team. There is no further neurological work-up needed. Syed Olmedo MD Time with Patient: Less than 30
[2020-07-19] MEDS ORDERED: ASPIRIN 81 MG PO SCH (11:30)
[2020-07-19 11:51] LABS: Glucose,Whole Blood 168 mg/dL (75-99)
--- NOTE | 2020-07-19 12:45 | PN ---
PROGRESS NOTE Mrs. Argueta is an 85-year-old female who presented with an episode of speech disturbance that resolved. There was an episode of atrial flutter on her EKG that subsequently resolved. She is feeling well this morning. Her speech is back to normal. She denies any chest pain. She denies any dizziness or palpitation. She was seen with her daughter. She had an echocardiogram performed yesterday that revealed a preserved systolic function with mild mitral and tricuspid regurgitation. She continues to be at this time on Eliquis 5 mg twice a day, aspirin once a day, Lipitor 80 mg daily, diltiazem 120 mg daily, losartan 100 mg daily. PHYSICAL EXAMINATION: Blood pressure 138/60 with a heart rate in the 60s. LUNGS: Clear. HEART: Regular rate and rhythm S1, S2. No S3. No rub. ABDOMEN: Soft, nontender. EXTREMITIES: No edema. IMPRESSION: 1. TIA. 2. Probable atrial flutter. 3. Hypertension. 4. Hyperlipidemia. 5. History of diabetes mellitus. RECOMMENDATION: From the cardiac standpoint she is stable. Continue present therapy. I would expect she should be able to be discharged home soon and follow up with her primary traveling phlebotomist. MMODL / IJN: [id number] /
--- NOTE | 2020-07-19 12:49 | CONS ---
CONSULTATION HISTORY: This is an 85-year-old female, she has been admitted to [facility] with history of articulation at home. She talked to her daughter, usually she talks in [place] but she was talking in [place]. She was taken to the emergency room and the patient had a blood sugar of 260. She has history of diabetes and hypertension. The patient had no amaurosis fugax or any motor deficit. MEDICAL HISTORY: History of diabetes, hypertension, hyperlipidemia. PERSONAL HISTORY: No history of smoking. No history of alcohol use. PHYSICAL EXAMINATION: Patient was seen in her room. She is in sitting position. Her vital signs stable. NECK: Supple. Trachea central. CHEST: Clear to auscultation. ABDOMEN: Soft. TEACHER RESOURCE: The patient has a normal motor function and speech. DIAGNOSTIC STUDIES: The patient had a carotid ultrasound which showed right side 50-[address] shows about is 70% stenosis with no evidence of intracranial bleed or infarction. The patient is under care of Cardiology because of irregular heartbeat, possible atrial fibrillation. At this point, the patient has been on anticoagulation with apixaban 5 mg. Her motor function normal and intact. We will follow with you. Thank you. MMODL / IJN: [id number] /
[2020-07-19 13:40] LABS: Chol/HDL Ratio 4.78
[2020-07-19 16:18] VITALS: BP 107/65
--- NOTE | 2020-07-19 17:20 | P.DS ---
Providers Date of admission: 07/18/20 01:52 Expected date of discharge: 07/19/20 Attending physician: Dixon Shanks Consults: 07/17/20 22:10 Consult Physician Routine Consulting Provider: Veronica Lyons Consult Reason/Comments: TIA Do you want consulting provider notified?: Yes 07/17/20 22:33 Consult Physician Routine Consulting Provider: [facility] Consult Reason/Comments: Atrial Flutter Do you want consulting provider notified?: Yes 07/18/20 17:35 Consult Physician Routine Consulting Provider: Logan Kirk Consult Reason/Comments: Right ICA stenosis significant Do you want consulting provider notified?: Yes Primary care physician: [facility] Course: Chief Complaint: Altered speech History of presenting complaint: This is a very pleasant 85-year-old patient often [place] origin.. Patient's daughter the bedside. Chronic stable medical conditions include diabetes, hypertension, hyperlipidemia. Patient lives alone but his daughter lives close by. And drops in all the time. Yesterday afternoon patient was doing apostles and she suddenly noticed that she was feeling confused. Went to her daughter. Also found difficulty finding words. This lasted for a good few hours. No change in vision or headache no dizziness no focal weakness. Finally decided to come down to the ER. Patient's found to be in rapid heart rate in the ER. Patient in 2013 has to was told has had irregular heartbeat but because it was short-lived. She was not given any anticoagulation. Patient is put on a Cardizem drip. Patient did revert to control rhythm only this morning. Patient's symptoms completely resolved. Because of claustrophobia patient could not have an MRI done. Possibly open MRI as an outpatient. Given that patient has a prior history of irregular heartbeat and possible atrial flutter with a rapid rate on presentation decision was made to anticoagulate the patient with eliquis. Initially the patient had declined aspirin because of concern about bruising of the skin. Today: Patient is feeling well. She is agreed to start aspirin after discussion with Dr. Olmedo from neurology and be discussing with the patient and the daughter. It is not clear if this was an embolic manifestation or a manifestation of the right carotid artery stenosis which is borderline. At this point in follow-up with Dr. Bangura from vascular with whom I discussed and further determination be made as an outpatient. Patient to continue with eliquis and aspirin. Questions answered. Discussion and discharge planning more than 35 minutes Consultation: Dr. Bangura from vascular Neurology Past medical history to include: Diabetes mellitus, hypertension, hyperlipidemia, episode of irregular heartbeat slrd-[id number]-limiting Social history: Lives alone but daughter lives very close by and often is over. Denies any smoking or alcohol. Family history: Reviewed, noncontributory to presentation Physical examination: VITAL SIGNS: 98, 68, 16, 107/65, 99% room air GENERAL: Sitting up, comfortable EYES: Pupils equal. Conjunctiva normal. HEENT: Some decrease in hearing NECK: JVD not raised; masses not palpable. HEART: First and second heart sounds are normal; no edema. LUNGS: Respiratory rate normal; clear to auscultation. ABDOMEN: Soft, nontender, liver spleen not palpable, no masses palpable. PSYCH: Alert and oriented x3; mood and affect normal. 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 INVESTIGATIONS, reviewed in the clinical context: WBC 8.5 hemoglobin 12.2 platelets 285 potassium 4.6 creatinine 0.88 Blood glucose 227 Troponin I less than 0.012 TSH 1.5 UA positive for leukoesterase, bacteria, glucose 4+ Coronavirus [PCR]: Not detected EKG tracing personally reviewed by me-SVT, flutter cannot be ruled out Computed tomography scan of the brain: Age related changes 2-D echocardiogram moderate concentric LVH, EF 50-55% CT angiography: Near 70% stenosis of the right internal carotid artery Assessment and plan: -TIA: Acute dysphasia with symptoms lasting for less than 24 hours, with complete resolution. Patient has underlying history of atrial fibrillation and possibly had atrial flutter on presentation. Most likely this is an embolic alysia nt. Initial computed tomography scan negative. Patient has around 70% stenosis of the right carotid artery. Lipitor, aspirin -Paroxysmal atrial flutter, now back in sinus rhythm, initially rate u ncontrolled Status post IV Cardizem drip. Now on Cardizem CD. Started on eliquis -Hyperlipidemia Placed on Lipitor -Essential hypertension, with urgency Now on Cardizem CD. Cozaar -Diabetes mellitus type 2, on oral hypoglycemic Resume metformin. Follow Accu-Cheks Disposition: Home Plan - Discharge Summary Discharge Rx Participant: No New Discharge Prescriptions: New Diltiazem Cd [Cardizem CD] 120 mg PO DAILY #30 cap.er.24h amLODIPine [Norvasc] 10 mg PO DAILY #30 tab Apixaban [Eliquis] 5 mg PO BID #60 tab Aspirin 81 mg PO DAILY #30 chew Atorvastatin [Lipitor] 80 mg PO HS #30 tab Continue metFORMIN HCL 1,000 mg PO BID Changed Losartan Potassium [Cozaar] 100 mg PO HS #0 Discontinued Felodipine [Felodipine ER] 10 mg PO DAILY Levocetirizine Dihydrochloride [Xyzal] 5 mg PO DAILY Discharge Medication List metFORMIN HCL 1,000 mg PO BID 07/17/20 [History] Apixaban [Eliquis] 5 mg PO BID #60 tab 07/18/20 [Rx] Aspirin 81 mg PO DAILY #30 chew 07/19/20 [Rx] Atorvastatin [Lipitor] 80 mg PO HS #30 tab 07/19/20 [Rx] Diltiazem Cd [Cardizem CD] 120 mg PO DAILY #30 cap.er.24h 07/19/20 [Rx] Losartan Potassium [Cozaar] 100 mg PO HS #0 07/19/20 [Rx] amLODIPine [Norvasc] 10 mg PO DAILY #30 tab 07/19/20 [Rx] Follow up Appointment(s)/Referral(s): Delgado Person DO [Primary Care Provider] - 1-2 days Cristina Flores MD [Medical Doctor] - 1 Week Logan Kirk MD [STAFF PHYSICIAN] - 3 Days Patient Instructions/Handouts: Transient Ischemic Attack (DC) Discharge Disposition: HOME SELF-CARE
[2020-07-19 18:12] LABS: Hemoglobin A1C 7.3 % (4.0-6.0)
[2020-07-19] MEDS ORDERED: ATORVASTATIN 80 MG TAB PO SCH (21:00)
[2020-07-19] MEDS ORDERED: LOSARTAN 50 MG TAB PO SCH (21:00)
== END 2020-07-19 13:35 | disposition home or self-care (01) | DRG 69 ==
LOC: EC 19:17 → 3SCARD 07-18 01:52
PROVIDERS: ADMIT Hospitalist; ATTEND Hospitalist
DX: G45.9 Transient cerebral ischemic attack, unspecified (principal); R47.01 Aphasia; I48.92 Unspecified atrial flutter; Z79.84 Long term (current) use of oral hypoglycemic drugs; E78.5 Hyperlipidemia, unspecified; E11.9 Type 2 diabetes mellitus without complications; I10 Essential (primary) hypertension; Z90.710 Acquired absence of both cervix and uterus; Z20.822 Contact with and (suspected) exposure to COVID-19; Z79.01 Long term (current) use of anticoagulants; Z88.5 Allergy status to narcotic agent; I65.23 Occlusion and stenosis of bilateral carotid arteries
CPT/HCPCS: 36415; 70450; 70496; 70498; 80053; 80061; 81001; 83036; 84443; 84484; 85025; 85610; 85730; 87635; 93005; 93306; 93880; 99285